=== PATIENT | female | born 1990 | race Caucasian/White ===

== ENCOUNTER 2017-12-12 06:18 | Emergency (ER) | payer OTHER ==
[2017-12-12 06:27] VITALS: BP 116/81; PULSE 87; RESP 18; TEMP 98.7; O2SAT 98
--- NOTE | 2017-12-12 07:21 | ED PDOC ---
HPI: Abdomen Time Seen by Provider: 12/12/17 07:02 Chief Complaint (Nursing): Abdominal Pain Chief Complaint (Provider): Lower abdominal pain History Per: Patient History/Exam Limitations: no limitations Additional Complaint(s): Pt reports lower abdominal pain that started while having BM last PM @ 7 PM, associated with subjective fever. Denies nausea, vomiting, constipation, diarrhea, vaginal discharge. Currently on menses. Pt dx with ovarian cyst 1 month ago on L side (5 cm). Has not taken anything for pain. Abnormal Vaginal Bleeding: No Past Medical History Reviewed: Nursing Documentation, Vital Signs Vital Signs: Last Vital Signs Temp 98.7 F 12/12/17 06:25 Pulse 87 12/12/17 06:25 Resp 18 12/12/17 06:25 BP 116/81 12/12/17 06:25 Pulse Ox 98 12/14/17 15:19 - Medical History PMH: No Chronic Diseases - Surgical History Surgical History: No Surg Hx - Family History Family History: States: Unknown Family Hx - Social History Current smoker - smoking cessation education provided: No Alcohol: None - Home Medications Home Medications: Ambulatory Orders Medication Instructions Recorded Naproxen [Naprosyn] 500 mg PO BID PRN #15 tablet 12/12/17 - Allergies Allergies/Adverse Reactions: Allergies Allergy/AdvReac Type Severity Reaction Status Date / Time No Known Allergies Allergy Verified 12/12/17 06:25 Review of Systems Constitutional: Positive for: Fever (Subjective). Negative for: Chills Cardiovascular: Negative for: Chest Pain, Palpitations Respiratory: Negative for: Cough, Shortness of Breath Gastrointestinal: Positive for: Abdominal Pain. Negative for: Nausea, Vomiting , Diarrhea Genitourinary Female: Positive for: Vaginal Bleeding (Menses). Negative for: Dysuria, Hematuria, Vaginal Discharge Musculoskeletal: Negative for: Neck Pain, Back Pain Skin: Negative for: Rash, Lesions Neurological: Negative for: Headache Physical Exam - Reviewed Nursing Documentation Reviewed: Yes Vital Signs Reviewed: Yes - Physical Exam Appears: Positive for: Well, No Acute Distress Skin: Positive for: Normal Color, Warm, Dry Eye Exam: Positive for: Normal appearance, EOMI, PERRL Cardiovascular/Chest: Positive for: Regular Rate, Rhythm Respiratory: Positive for: Normal Breath Sounds Gastrointestinal/Abdominal: Positive for: Bowel Sounds, Soft, Tenderness ( Suprapubic/LLQ). Negative for: Mass, Distended, Guarding, Rebound Back: Positive for: Normal Inspection. Negative for: L CVA Tenderness, R CVA Tenderness Extremity: Positive for: Normal ROM Neurologic/Psych: Positive for: Alert, Oriented - Laboratory Results Result Diagrams: 12/12/17 07:25 12/12/17 07:25 - ECG O2 Sat by Pulse Oximetry: 98 - Progress Condition: Improved Medical Decision Making Medical Decision Makin yo with suprapubic/LLQ pain. - labs - pelvic ultrasound Accession No. : [id number] Patient Name / ID : EMMANUEL GLASER / [id number] Exam Date : 12/12/2017 11:50:42 ( Approved ) Study Comment : Sex / Age : F / 27Y Creator : Ta Sinha MD Dictator : Ta Sinha MD Field Specialist : Movie Theater Usher : Ta Sinha MD Approver2 : Report Date : 12/12/2017 12:26:42 My Comment : PROCEDURE: HISTORY: LLQ/pelvic ultrasound COMPARISON: TECHNIQUE: FINDINGS: The uterus measures 7.1 x 3.3 x 5.6 centimeters. The endometrium measures 4 millimeters. The right ovary measures 3.3 x 2.8 centimeters. Left ovary measures 4.4 x 3.0 centimeters contains 1.9 centimeter hemorrhagic cyst. There is no free fluid the pelvis. IMPRESSION: 1.9 centimeter hemorrhagic cyst in the left ovary. Disposition - Clinical Impression Clinical Impression: Hemorrhagic cyst of left ovary, Candidiasis of genitalia in female - Disposition Disposition: Routine/Home Disposition Time: 12:47 Condition: STABLE Additional Instructions: FOLLOW-UP WITH OB-INFRASTRUCTURE TECHNICIAN WITHIN 2 DAYS FOR REEVALUATION. Prescriptions: Naproxen [Naprosyn] 500 mg PO BID PRN #15 tablet PRN Reason: Pain, Moderate (4-7) Instructions: Ovarian Cysts, Yeast Infection (DC) Forms: [employer] (E[place]ian)
[2017-12-12 07:44] LABS: ALB/GLOB RATIO 1.1 (1.0-2.1); ALT/SGPT 29 U/L (9-52); AST/SGOT 17 U/L (14-36); BLOOD UREA NITROGEN 9 mg/dl (7-17); GFR AFRICAN-AMERICAN > 60; GFR NON-AFRICAN AMERICAN > 60
[2017-12-12 07:47] LABS: BASO % 0.3 % (0.0-2.0); EOS % 0.6 % (0.0-4.0); HEMOGLOBIN 11.9 g/dL (12.0-16.0); LYMPH # 1.8 K/uL (1.0-4.3); LYMPH % 22.2 % (20.0-40.0); MEAN CELL VOLUME 92.2 fl (81.0-99.0); MEAN CORPUSCULAR HEMOGLOBIN 30.8 pg (27.0-31.0); MEAN CORPUSCULAR HGB CONC 33.5 g/dL (33.0-37.0); MONO # 0.6 K/uL (0.0-0.8); MONO % 7.6 % (0.0-10.0); NEUT # 5.5 K/uL (1.8-7.0); NEUT % 69.3 % (50.0-75.0); RBC 3.87 Mil/uL (3.80-5.20); WHITE BLOOD COUNT 7.9 K/uL (4.8-10.8)
[2017-12-12 09:49] LABS: SQUAMOUS EPITHIAL 1 /hpf (0-5); URINE BACTERIA RARE (<OCC); URINE BILIRUBIN NEGATIVE (NEGATIVE); URINE BLOOD LARGE (NEGATIVE); URINE CLARITY CLOUDY (Clear); URINE COLOR YELLOW (YELLOW); URINE GLUCOSE (UA) NEG (Normal); URINE LEUKOCYTE ESTERASE NEG Leu/uL (Negative); URINE PROTEIN 30 mg/dL (NEGATIVE)
--- NOTE | 2017-12-12 12:28 | US ---
PROCEDURE: HISTORY: LLQ/pelvic ultrasound COMPARISON: TECHNIQUE: FINDINGS: The uterus measures 7.1 x 3.3 x 5.6 centimeters. The endometrium measures 4 millimeters. The right ovary measures 3.3 x 2.8 centimeters. Left ovary measures 4.4 x 3.0 centimeters contains 1.9 centimeter hemorrhagic cyst. There is no free fluid the pelvis. IMPRESSION: 1.9 centimeter hemorrhagic cyst in the left ovary.
[2017-12-12] MEDS ORDERED: Fluconazole 150 MG TAB PO STA (12:40)
== END 2017-12-12 12:58 | disposition home or self-care (01) ==
LOC: H.ER 06:18
DX: N83.291 Other ovarian cyst, right side (principal); B37.3 Candidiasis of vulva and vagina